=== PATIENT | female | born 1975 | race Caucasian/White ===

== ENCOUNTER 2020-05-28 16:46 | Emergency (ER) | payer OTHER ==
[2020-05-28 17:19] VITALS: BP 147/84
[2020-05-28] MEDS ORDERED: CYCLOBENZAPRINE HCL 10 MG TABLET PO ONE (17:45)
[2020-05-28] MEDS ORDERED: ACETAMINOPHEN 325 MG TABLET PO ONE (17:46)
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
== END 2020-05-28 19:11 | disposition home or self-care (01) ==
LOC: ER 16:46
DX: M25.551 Pain in right hip (principal); M62.838 Other muscle spasm; T22.112A Burn of first degree of left forearm, initial encounter; V49.40XA Driver injured in collision with unspecified motor vehicles in traffic accident, initial encounter; M62.830 Muscle spasm of back; F17.200 Nicotine dependence, unspecified, uncomplicated
CPT/HCPCS: 72170; 99283